=== PATIENT | female | born 1955 | race Hispanic/Latino ===

== ENCOUNTER 2020-10-04 08:53 | Emergency (ER) | payer OTHER, SELFPAY ==
--- OUTSIDE RECORDS SUMMARY | 2020-10-04 09:11 | XMS REPORT ---
:1955 Author Organization [facility] Address [address] 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 lifestyle modifications Problem Prediabetes R73.03 Active 903694075 Problem HTN I10 Active 45183327 (hypertension) Problem Acute sinusitis, J01.90 Active 61579345 unspecified Problem Encounter for Z00.01 Active 699696626 general adult medical examination with abnormal findings Problem Mixed E78.2 Active 404843619 hyperlipidemia Problem Temporary low D69.6 Active 902869352 platelet count Problem Benign H81.12 Active 706038173 paroxysmal positional vertigo of left ear ALLERGIES No Known Allergies ENCOUNTERS from 1955 to 2020-09-30 Encounter Location Date Provider Diagnosis [facility] [address] [place] Sep, Na Anupam HTN (hypertension) I10 ; Family Medicine [address] [facility] [place] [address] unspecified J0 1.90 ; Benign paroxysm al positional vert igo of left ear H81.12 ; Mixed hyperlipidemia E78.2 ; Prediabetes R73 .03 ; Allergic rhinit is J30.9 and Other speci fied bacterial agent s as the cause of diseas es classified else where B96.89 IMMUNIZATIONS No Information SOCIAL HISTORY Tobacco Use: Social History Observation Description Date Details (start date - stop date) Never Smoker Sex Assigned At : Social History Observation Description Sex Assigned At Unknown PHQ9 Question Answer Notes Little interest or pleasure in doing things More than half t he days Feeling down, depressed, or hopeless Nearly every day Trouble falling or staying asleep or sleeping too much Nearl y every day Feeling tired or having little energy Nearly every day Poor appetite or overeating Nearly every day Feeling bad about yourself, or that you are a failure, More than half the days or have let yourself or your family down Trouble concentrating on things, such as reading the Nearly every day newspaper or watching television Moving or speaking so slowly that other people could Nearly every day have noticed; or the opposite, being so fidgety or restless that you have been moving around a lot more than usual Total Score 22 Interpretation Severe Depression Thoughts that you would be better off or of Not at all hurting yourself in some way Tobacco Use/Smoking Question Answer Notes Are you a never smoker REASON FOR REFERRAL No Information VITAL SIGNS No information MEDICATIONS Medication SIG (Take, Route, Notes Start Date End Date Status Frequency, Duration) Losartan Potassium 100 Take 1 tablet by Active MG mouth once daily for 30 Losartan 1 tablet Orally Once Acti ve Potassium-HCTZ a day for 90 day(s) 100-12.5 MG Flonase 50 MCG/ACT 2 spray in each A ctive nostril Nasally Once a day for 90 days Rosuvastatin Calcium 5 1 tablet Orally Once Active MG a day at bedtime for 90 days Montelukast Sodium 10 1 tablet Orally Once Active MG a day for 90 days Amoxicillin 500 MG 1 capsule Orally Sep,Sep, 020 Active every 8 hrs for 7 days Vitamin D 1 capsule Orally for Not- Taking (Ergocalciferol) 68939 30 day(s) UNIT PredniSONE 10 MG 2 tablets with food Sep, Sep, Active or milk Orally Once a day for 7 days Amlodipine Besylate 5 1 tablet Orally Once Active MG a day at bedtime for 90 days PROCEDURES No Information RESULTS No Results REASON FOR VISIT Discuss medication/s , lab results, elevated BP, left ear dizziness, sinus pressure, hld, depressionanxiety, prediabetes MEDICAL (GENERAL) HISTORY Type Description Date Medical History Allergic rhinitis Medical History HTN (hypertension) Surgical History foot surgery 2003 Surgical History tubes tied 1994 Goals Section No Information Health Concerns No Information MEDICAL EQUIPMENT No Information MENTAL STATUS No Information FUNCTIONAL STATUS No Information ASSESSMENTS Encounter Date Diagnosis Assessment Treatment Notes Treatment Notes Clinical Notes Sep, HTN (hypertension) elevated -- Maintian a low unco ntrolled (ICD-10 - I10) salt DASH diet, will add exercise, weight loss amlodo pine 5mg and decrease stress at bedti me recommended. Keep BP log and will review next visit. If blood pressure consistently above 140/90 return to clinic for adjustment of meds. Try to quit smoking if you currently smoke. Decrease caffeine intake if possible. - - advised to avoid phenylephrine and pseudoephedrine in otc sinus/cold meds containing these decongestants which work by vasoconstricting blood vessels to help decrease congestion however may cause your BP to rise. -- If you have a cold may take Coricidin brand of cold medicines safe for high blood pressure patients. Sep, Acute sinusitis, unspecified (ICD-10 - J01.90) Sep, Benign paroxysmal - aviod frequent positional vertigo movements/ changes in of left ear (ICD-10 position of head. - H81.12) recommend to try at home vertigo exercise. recommend to avoid caffeine and stay hydrated. - may try compression stockings. take meds as directed. move slowly. -- will treat - discussed bppv exercises to reshift crystals of ear and how to do exercises at home. - if symptoms of dizziness worsen or you develop nausea, vomiting or headache go to ER. Sep, Mixed low fat diet, hyperlipidemia decrease fast food (ICD-10 - E78.2) and fried foods. Increase fruit and vegetable intake. exercise as tolerated 30minutes per day at least 3 days a week. May take fish oil 1000mg twice daily to help increase good cholesterol (HDL). Sep, Prediabetes (ICD-10 A1C6.0 6.2 - R73.03) low carb 1800 ADA diet. Avoid sodas, juices and remember portion control. Low fat diet exercise and weightloss. will monitor A1C every 6 months. Sep, Allergic rhinitis (ICD-10 - J30.9) Sep, Other specified bacterial agents as the cause of diseases classified elsewhere (ICD-10 - B96.89) Sep, Other -- Medications Total time sp ent reviewed and updated. by pro vider -- Dietary and during this Lifestyle virtual visit modifications was 21minutes. discussed with Also, time wa s patient regarding low spent counseling fat low salt diet and coordi nating diet, exercise and care incl uding weight management. -- but no t limited Treatment options, to discus vandana of risks and benefits, test res ults, side effects reviewed diagno stic or in detail. Patient treatment accepts risk. -- recommendat ions, Advised on prognosis, risk s signs/symptoms to and benefi ts of monitor and when to manageme nt call clinic and/or options, visit the nearest ER. instru ctions, Patient verbalized education , understanding and compliance and agreed with plan. or risk time was spent reduction. counseling and coordinating care including but not limited to discussion of test results, diagnostic or treatment recommendations, prognosis, risks and benefits of management options, instructions, education, compliance and or risk reduction. - PLAN OF TREATMENT Medication Medication Name Sig Start Date Stop Date PredniSONE 10 MG 2 tablets with food or milk Sep, Sep, Orally Once a day for 7 days Amoxicillin 500 MG 1 capsule Orally every 8 Sep, 15 D ec, 2019 hrs for 7 days Amlodipine Besylate 5 MG 1 tablet Orally Once a day at bedtime for 90 days Rosuvastatin Calcium 5 MG 1 tablet Orally Once a day at bedtime for 90 days Losartan Potassium-HCTZ 100-12.5 1 tablet Orally Once a day MG for 90 day(s) Montelukast Sodium 10 MG 1 tablet Orally Once a day for 90 days Treatment Notes Assessment Notes Clinical Notes HTN (hypertension) -- Maintian a low salt DASH uncontrolled will add diet, exercise, weight loss amlodopine 5 mg at bedtime and decrease stress recommended. Keep BP log and will review next visit. If blood pressure consistently above 140/90 return to clinic for adjustment of meds. Try to quit smoking if you currently smoke. Decrease caffeine intake if possible. - - advised to avoid phenylephrine and pseudoephedrine in otc sinus/cold meds containing these decongestants which work by vasoconstricting blood vessels to help decrease congestion however may cause your BP to rise. -- If you have a cold may take Coricidin brand of cold medicines safe for high blood pressure patients. Benign paroxysmal positional - aviod frequent movements/ vertigo of left ear changes in position of head. recommend to try at home vertigo exercise. recommend to avoid caffeine and stay hydrated. - may try compression stockings. take meds as directed. move slowly.-- will treat- discussed bppv exercises to reshift crystals of ear and how to do exercises at home.- if symptoms of dizziness worsen or you develop nausea, vomiting or headache go to ER. Mixed hyperlipidemia low fat diet, decrease fast food and fried foods. Increase fruit and vegetable intake. exercise as tolerated 30minutes per day at least 3 days a week. May take fish oil 1000mg twice daily to help increase good cholesterol (HDL). Prediabetes A1C6.0 6.2low carb 1800 ADA diet. Avoid sodas, juices and remember portion control. Low fat diet exercise and weightloss. will monitor A1C every 6 months. Next Appt Details 2 Weeks Reason:bp check/ dizziness Provider Name:Maria M Bo, 2020-10-12 08:2 0:00 AM, [address], [address], [place], [address], Provider Name:Maria M Bo, 2021-01-23 08:0 0:00 AM, [address], [address], [place], [address], Provider Name:Maria M Bo, 2021-01-30 10:0 0:00 AM, [address], [address], [place], [address], Follow Up:2 Weeksbp check/ dizziness Insurance Providers Payer Name Payer Payer Insured Patient Coverage Coverage End Address Phone Name Relationship to Start Date Gee e Insured Ambetter from [phone] Myah Palomino self [address] [place] [id number] [facility] [id number]
--- OUTSIDE RECORDS SUMMARY | 2020-10-04 09:11 | XMS REPORT ---
:1955 Author Organization [facility] Address [address] 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 817906400 improved with depression lifestyle modifications ALLERGIES No Known Allergies ENCOUNTERS from 1955 to 2020-08-19 Encounter Location Date Provider Diagnosis [facility] [address] [facility] [address], [place] [address] IMMUNIZATIONS No Information SOCIAL HISTORY Tobacco Use: [...] No information MEDICATIONS Medication SIG (Take, Route, Start Date End Date Status Frequency, Duration) Flonase 50 MCG/ACT 2 spray in each nostril Active Nasally Once a day for 90 days Losartan Potassium-HCTZ 1 tablet Orally Once a Active 100-12.5 MG day for 90 day(s) Losartan Potassium 100 MG Take 1 tablet by mouth Active once daily for 30 Amlodipine Besylate 5 MG 1 tablet Orally Once a Jun, Active day at bedtime for 90 days Rosuvastatin Calcium 5 MG 1 tablet Orally Once a Jun, Active day at bedtime for 90 days Vitamin D (Ergocalciferol) 1 capsule Orally for 30 Not-Taking 14692 UNIT day(s) Montelukast Sodium 10 MG 1 tablet Orally Once a Active day for 90 days PROCEDURES No Information RESULTS No Results REASON FOR VISIT Lab result MEDICAL (GENERAL) HISTORY Type Description Date Medical History Allergic rhinitis Medical History HTN (hypertension) Surgical History foot surgery 2003 Surgical History tubes tied 1995 Goals Section No Information Health Concerns No Information MEDICAL EQUIPMENT No Information MENTAL STATUS No Information FUNCTIONAL STATUS No Information ASSESSMENTS No Information PLAN OF TREATMENT Medication Medication Name Sig Start Date Stop Date Amlodipine Besylate 5 MG 1 tablet Orally Once a day Jun, at bedtime for 90 days Rosuvastatin Calcium 5 MG 1 tablet Orally Once a day Jun, 0 at bedtime for 90 days Montelukast Sodium 10 MG 1 tablet Orally Once a day for 90 days Losartan Potassium-HCTZ 100-12.5 1 tablet Orally Once a day MG for 90 day(s) Next Appt Details Provider Name:Maria M Bo, 2021-01-23 08:0 0:00 AM, [address], [address], [place], [address], Provider Name:Maria M Bo 2021-01-30 10:0 0:00 AM, [address], [address], [place], [address], Insurance Providers Payer Name Payer Payer Insured Patient Coverage Coverage End Address Phone Name Relationship to Start Date Gee e Insured Ambetter from [phone] Myah Palomino self [address] [place] [id number] [address] [facility] [phone]
--- OUTSIDE RECORDS SUMMARY | 2020-10-04 09:12 | XMS REPORT | Continuity of Care Document ---
:1955 Author Organization [facility] t Address [address] [place] [address] Care Team Providers Name Role Phone LINDA MEEK Attending Clinician Unavailable JONNY PERLA Attending Clinician Unavailable LINDA MEEK Admitting Clinician Unavailable JONNY PERLA Admitting Clinician Unavailable Problems This patient has no known problems. Allergies, Adverse Reactions, Alerts This patient has no known allergies or adverse reactions. Medications Ordered Filled Start Stop Current Ordering Indication Dosage Frequency Signature Comments Components Source Medication Medication Date Date Medication? Clinician (SIG) Name Name Amlodipine Amlodipine Yes Na Meek [address] [facility] Besylate [facility] 07[facility]01 [facility] Rosuvastati Rosuvastati Yes Na Meek [address] [facility] n Calcium n Calcium 07-01 [facility] Flonase Flonase Yes Na Meek [address] [facility] 4-04 each [facility] Montelukast Montelukast Yes Na Meek [address] [facility] Sodium Sodium [facility] Losartan Losartan Yes Na Meek [address] [facility] Potassium-H Potassium-H [facility] - [facility] ent Clinics Vitamin D Vitamin D Yes Na Meek [address] [facility] (Ergocalcif (Ergocalcif [facility] - [facility]) [facility] Losartan Losartan Yes Na Meek Take [address] Potassium Potassium tablet by [facility] - mouth once [facility] daily l Outpati ent Clinics Procedures This patient has no known procedures. Encounters Start End Encounter Admission Attending Care Care Encounter Source Date/Time Date/Time Type Type Clinicians Facility Department ID 2020-09-27 2020-09-27 [facility] [id number] 2020-08-17 2020-08-[address] [facility] [id number] [facility] 2020-07-01 2020-07-01 [facility] [id number] [facility] 09:40[facility]00 09:40:00 [facility] l Medicine Outpati ent Clinics 2020-06-07 2020-06-07 [facility] [id number] [facility] 01:12:00 01:12:00 [facility] l Medicine Outpati ent Clinics 2020-01-12 2020-01-12 [facility] [id number] [facility] 08:00:00 08:00:00 [facility] l Medicine Outpati ent Clinics 2019-11-03 2019-11-03 [facility] [id number] [facility] 11:08:00 11:08:00 [facility] l Medicine Outpati ent Clinics 2019-09-22 2019-09-22 [facility] [id number] [facility] 16:47:00 16:47:00 [facility] l Medicine Outpati ent Clinics 2019-09-16 2019-09-16 [facility] [id number] 08:20:00 08:20:00 [facility] Medicine l Medicine Outpati ent Clinics 2019-05-29 2019-05-29 [facility] [id number] [address] 10:40:00 10:40:00 [facility] Medicine l Medicine Outpati ent Clinics 2019-04-30 2019-04-30 Outpatient LINDA SHAR[facility] RAD [id number] [facility] 13:28:00 23:59:00 [facility] 2019-04-24 2019-04-24 Outpatient Manny Fraga [id number] [facility] 09:40[facility]00 09:40:00 [place] [employer] [facility] 2019-01-22 2019-01-22 Out[place] [id number] [address] 09:00:00 09:00:[address] [place] [address] [facility] Results Test Description Test Time Test Comments Results Result Sourc e Comments MAMMOGRAM 2019-04-20 Exam: Bilateral digital SCREENING CAD 1 mammogramLocation: INC G0202 15:21:32 [id number]: Routine screening.Comparison: 06/05/17 and 02/09/16FINDINGS:No dominant masses or clustered microcalcifications are identified. Smallwell-defined nodule in the upper outer left breast likely represents lymph nodeand is unchanged in the interval. The breast parenchyma demonstrates scatteredfibroglandular elements without change. R2 computer aided detection was utilized as an aid for interpreting theseimages.IMPRESSION:1. ACR BI-RADS 2. Benign findings. Recommendation: Routine yearly mammographic follow-up recommended. MAMMOGRAM ANNUAL 2017-05-21 Exam: Bilateral digital SCREENING-LEILA 6 mammogramLocation: W/CAD G0202 11:57:04 [id number]: Routine screening.Comparison: 02/09/16FINDINGS:No dominant masses or clustered microcalcifications are identified. The breastparenchyma demonstrates scattered fibroglandular elements without change. R2 computer aided detection was utilized as an aid for interpreting theseimages.IMPRESSION:1. ACR BI-RADS 2. Benign findings. Recommendation: Routine yearly mammographic follow-up recommended. [employer] AccreditationFDA CertifiedBoard Certified Radiologists(ARRT) Registered Mammography TechnologistsNOTE: 1. A negative report should not delay biopsy if a dominant or clinicallysuspicious mass is present. 4 to 8% of cancers are not identified by x-ray.2. A negative report may reinforce clinical impression.3. Adenosis and dense breasts may obscure an underlying neoplasm.4. False positive results average 6 to 10%.5. Complete assessment of BI-RADS wording:A. Category 0 = Needs Additional Imaging Evaluation.B. Category 1 = Negative mammogram.C. Category 2 = Benign Finding.D. Category 3 = Probably Benign Finding - Short Interval Followup Suggested.E. Category 4 = Suspicious Abnormality.F. Category 5 = Highly Suggestive Of Malignancy.G. Category 6 = Known Malignancy.
--- NOTE | 2020-10-04 10:02 | RAD REPORT ---
EXAM DESCRIPTION: RAD - Chest Single View - 10/04/2020 9:38 am CLINICAL HISTORY: dizziness, shortness of breath COMPARISON: None TECHNIQUE: AP portable chest image was obtained 10/04/2020 9:38 am . FINDINGS: Lungs are clear. Heart and vasculature are normal. No measurable pleural effusion and no p neumothorax. No acute bony abnormality seen. No acute aortic findings suspected. IMPRESSION: No acute cardiopulmonary process.
--- NOTE | 2020-10-04 10:06 | RAD REPORT ---
EXAM DESCRIPTION: CT - Head Brain Wo Cont - 10/04/2020 9:43 am CLINICAL HISTORY: DIZZINESS COMPARISON: No comparisons TECHNIQUE: Axial 5 mm thick images of the head were obtained without IV contrast. All CT scans are performed using dose optimization technique as appropriate and may include automated exposure control or mA/KV adjustment according to patient size. FINDINGS: No intracranial hemorrhage, mass, edema or shift of mid-line structures. No acute infarcti on changes seen. No abnormal extra-axial fluid collections. Ventricles are normal. Mastoid air cells and visualized portions of the paranasal sinuses are clear. No acute bony findings. IMPRESSION: Negative non-contrast CT head examination.
[2020-10-04] MEDS ORDERED: ONDANSETRON 4 MG/2 ML VIAL ONE (10:38)
[2020-10-04] MEDS ORDERED: MECLIZINE HCL 12.5 MG TAB ONE (10:38)
[2020-10-04 11:13] LABS: Absolute Lymphocytes (CBC) 2.6 K/uL (0.7-4.9); Basophils % 0.6 % (0-1.3); Hematocrit 43.7 % (36.0-45.0); MPV 7.8 fL (7.6-11.3); RBC Red Blood Cell Count 5.01 M/uL (3.86-4.86)
[2020-10-04 11:16] LABS: Protime INR 1.12
[2020-10-04 11:36] LABS: ALT/SGPT 68 U/L (12-78); AST/SGOT 29 U/L (15-37); Albumin 4.1 g/dL (3.4-5.0); Alkaline Phosphatase 99 U/L (45-117); BUN Blood Urea Nitrogen 14 mg/dL (7-18); Bicarbonate 29 mmol/L (21-32); Bilirubin Direct < 0.1 mg/dL (0-0.2); Bilirubin Total 0.4 mg/dL (0.2-1.0); Glucose Level 112 mg/dL (74-106); Magnesium 2.4 mg/dL (1.8-2.4); NT PRO-BNP 34 pg/mL (<125); Potassium 3.4 mmol/L (3.5-5.1); Protein, Total 8.3 g/dL (6.4-8.2); Sodium Level 137 mmol/L (136-145); Troponin (Emerg Dept Use Only) < 0.02 ng/mL (0.0-0.045)
--- NOTE | 2020-10-04 11:44 | RAD REPORT ---
EXAM DESCRIPTION: CT - Head angio - 10/04/2020 11:17 am CLINICAL HISTORY: DIZZINESS TECHNIQUE: During dynamic enhancement using nonionic IV contrast, axial 1 millimeter thick images of the head were obtained. Sagittal and axial reconstruction images were generated using MIP technique and reviewed. All CT scans are performed using dose optimization technique as appropriate and may include automated exposure control or mA/KV adjustment according to patient size. COMPARISON: CT head same date FINDINGS: No aneurysm or vascular malformation identified. Major venous sinuses are patent. No stenosis, named branch occlusion, vasculitis or other significant vascular finding identifiable. IMPRESSION: Negative CT angio head examination.
--- NOTE | 2020-10-04 11:48 | RAD REPORT ---
EXAM DESCRIPTION: CT - Neck Angio - 10/04/2020 11:20 am CLINICAL HISTORY: dizziness TECHNIQUE: During dynamic enhancement using nonionic IV contrast, axial 2 mm thick images of the nec k were obtained. Sagittal and axial reconstruction images were generated using MIP technique and revi ewed. All CT scans are performed using dose optimization technique as appropriate and may include automated exposure control or mA/KV adjustment according to patient size. COMPARISON: CT head same date, CT angio head same date FINDINGS: No aneurysm or vascular malformation identified. No carotid or vertebral dissection. No aortic arch or great vessel origin abnormality seen. Vertebral artery origins unremarkable as well . No stenosis, vasculitis or other significant carotid artery finding. No focal abnormality of either vertebral artery. Basilar artery is normal. IMPRESSION: Negative CT angio neck examination.
[2020-10-04] MEDS ORDERED: DIAZEPAM 10 MG/2 ML INJ SYRINGE ONE (12:31)
--- NOTE | 2020-10-04 14:15 | EDPHYS ---
Physician Documentation [facility] Name: Swathi Palomino Age: 65 yrs Sex: Female : 1955 Arrival Date: 10/04/2020 Time: 09:00 Bed 14 Private MD: ED Physician Bora Bejarano HPI: 10/04 09:35 This 65 yrs old Female presents to ER via Ambulatory with complaints of jmm Dizziness. 09:35 The patient presents with dizziness, sense of spinning. Onset: The symptoms/episode jmm began/occurred acutely, 3 week(s) ago. Modifying factors: The symptoms are alleviated by sitting up, the symptoms are aggravated by lying down. Associated signs and symptoms: Pertinent positives: left arm numbess, Pertinent negatives: chest pain. This is a 65 year old female with a history of htn that presents ot the ED with complaints of dizziness described as the room spinning which began approx 1 month to 3 weeks ago. Denies recent URI. States having an episode of left arm numbness which lasted for 10 minutes yesterday. Denies chest pain. Denies vomiting but states having nausea. Historical: - Allergies: 09:18 No Known Allergies; sv - PMHx: 09:18 Hypertension; sv - Immunization history:: Flu vaccine is up to date. - Social history:: Smoking status: Patient denies any tobacco usage or history of. ROS: 09:35 Constitutional: Negative for fever, chills, and weight loss, Cardiovascular: Negative jmm for chest pain, palpitations, and edema, Respiratory: Negative for shortness of breath, cough, wheezing, and pleuritic chest pain. 09:35 Neuro: Positive for dizziness, numbness. 09:35 All other systems are negative. Exam: 09:35 Constitutional: This is a well developed, well nourished patient who is awake, alert, jmm and in no acute distress. Head/Face: atraumatic. 09:35 ENT: Moist Mucus Membranes Neck: Trachea midline, Supple Chest/axilla: Normal chest wall appearance and motion. 09:35 Respiratory: Normal respirations, no respiratory distress appreciated Abdomen/GI: Non distended, soft Back: Normal ROM Skin: General appearance color normal MS/ Extremity: Moves all extremities, no obvious deformities appreciated, no edema noted to the lower extremities 09:35 Eyes: Nystagmus: nystagmus with fast component noted, bilaterally. 09:35 Cardiovascular: Rate: normal, Rhythm: regular. 09:35 Neuro: Orientation: is normal, Mentation: is normal, Memory: is normal, Cerebellar function: normal finger to nose testing, heel to nguyen testing is normal. 09:35 Psych: Behavior/mood is pleasant, cooperative. 12:21 ECG was reviewed by the Attending Physician. [facility] Vital Signs: 09:15 BP 193 / 90; Pulse 68; Resp 14; Temp 98.2; Pulse Ox 100% ; Weight 74.39 kg; Height 5 sv ft. 0 in. (152.40 cm); Pain 0/10; 09:45 BP 194 / 75; Pulse 61; Resp 16; Pulse Ox 99% on R/A; vg1 10:00 BP 177 / 87; Pulse 63; Resp 14; Pulse Ox 99% on R/A; vg1 10:45 BP 139 / 66; Pulse 55; Resp 14; Pulse Ox 99% on R/A; vg1 11:30 BP 123 / 65; Pulse 61; Resp 14; Pulse Ox 100% on R/A; vg1 12:18 BP 151 / 76; Pulse 61; Resp 16; Pulse Ox 99% on R/A; vg1 12:30 BP 122 / 50; Pulse 63; Resp 14; Pulse Ox 95% on R/A; vg1 13:15 BP 137 / 74; Pulse 65; Resp 14; Pulse Ox 100% on R/A; vg1 14:00 BP 175 / 75; Pulse 62; Resp 14; Pulse Ox 100% on R/A; vg1 14:45 BP 147 / 69; Pulse 63; Resp 16; Pulse Ox 98% on R/A; vg1 09:15 Body Mass Index 32.03 (74.39 kg, 152.40 cm) sv MDM: 09:11 Patient medically screened. sage 14:12 Data reviewed: vital signs, nurses notes. Counseling: I had a detailed discussion with gonzalo the patient and/or guardian regarding: the historical points, exam findings, and any diagnostic results supporting the discharge/admit diagnosis, lab results, radiology results, the need for outpatient follow up, to return to the emergency department if symptoms worsen or persist or if there are any questions or concerns that arise at home. ED course: Dizziness resolved in the ED. CT and CTA negative for an acute process. Advised to follow up with neuro and ent for further evaluation. Patient is otherwise given strict return precautions. Patient understood and agrees with the plan of care. . 10/04 09:27 Order name: Basic Metabolic Panel; Complete Time: 11:40 [facility] 10/04 09:27 Order name: CBC with Diff; Complete Time: 11:28 [facility] 10/04 09:27 Order name: LFT's; Complete Time: 11:40 [facility] 10/04 09:27 Order name: Magnesium; Complete Time: 11:40 [facility] 10/04 09:27 Order name: NT PRO-BNP; Complete Time: 11:40 [facility] 10/04 09:27 Order name: PT-INR; Complete Time: 11:28 [facility] 10/04 09:27 Order name: Troponin (emerg Dept Use Only); Complete Time: 11:40 [facility] 10/04 09:27 Order name: XRAY Chest (1 view); Complete Time: 10:07 [facility] 10/04 09:29 Order name: CT Head Brain wo Cont; Complete Time: 10:07 [facility] 10/04 10:35 Order name: Head Angio CT; Complete Time: 11:49 [facility] 10/04 10:35 Order name: Neck Angio CT; Complete Time: 11:49 [facility] 10/04 14:40 Order name: CREATININE WHOLE BLOOD; Complete Time: 14:49 [facility] 10/04 09:27 Order name: EKG; Complete Time: 09:28 [facility] 10/04 09:27 Order name: Cardiac monitoring; Complete Time: 09:40 [facility] 10/04 09:27 Order name: EKG - Nurse/Tech; Complete Time: 09:40 [facility] 10/04 09:27 Order name: IV Saline Lock; Complete Time: 10:41 [facility] 10/04 09:27 Order name: Labs collected and sent; Complete Time: 09:59 [facility] 10/04 09:27 Order name: O2 Per Protocol; Complete Time: 09:40 [facility] 10/04 09:27 Order name: O2 Sat Monitoring; Complete Time: 09:40 jm EC:21 Rate is 60 beats/min. Rhythm is regular. QRS [place] is Normal. FL interval is normal. QRS jmm interval is normal. QT interval is normal. No Q waves. T waves are Normal. No ST changes noted. Reviewed by me. Administered Medications: 09:45 CANCELLED (cancel): cloNIDine 0.1 mg PO once [facility] 10:30 Drug: Meclizine 50 mg Route: PO; vg1 12:28 Follow up: Response: No adverse reaction vg1 10:30 Drug: Zofran (Ondansetron) 4 mg Route: IVP; Site: right antecubital; vg1 12:28 Follow up: Response: Nausea is decreased vg1 12:20 Drug: Valium 2 mg Route: IVP; Site: right antecubital; vg1 12:40 Follow up: Response: No adverse reaction vg1 Disposition: 10/05 11:51 Co-signature as Attending Physician, Bora Bejarano MD I agree with the assessment and sage plan of care. Disposition: 10/04/20 14:14 Discharged to Home. Impression: Vertigo. - Condition is Stable. - Discharge Instructions: Benign Positional Vertigo, Vertigo, Marylu Maneuver Self-Care. - Prescriptions for Meclizine 25 mg Oral Tablet - take 1 tablet by ORAL route every 8 hours As needed; 30 tablet. - Medication Reconciliation Form, Thank You Letter, Antibiotic Education, Prescription Opioid Use form. - Follow up: Private Physician; When: 2 - 3 days; Reason: Recheck today's complaints, Continuance of care, Re-evaluation by your physician. Follow up: Paolo Hanks MD; When: 2 - 3 days; Reason: Recheck today's complaints, Continuance of care, Re-evaluation by your physician. Follow up: Makenzie Jones MD; When: 2 - 3 days; Reason: Recheck today's complaints, Continuance of care, Re-evaluation by your physician. Signatures: Dispatcher [employer] EDMakenzie Borges, Bora Gaytan RN, MD MD cha Mickail, Joel, PA PA jmm Garcia, Victoria, RN RN vg1 Corrections: (The following items were deleted from the chart) 10/04 09:45 09:28 cloNIDine 0.1 mg PO once ordered. gonzalo sánchez 14:17 14:14 10/04/2020 14:14 Discharged to Home. Impression: Vertigo. Condition is Stable. [facility] Forms are Medication Reconciliation Form, Thank You Letter, Antibiotic Education, Prescription Opioid Use. Follow up: Private Physician; When: 2 - 3 days; Reason: Recheck today's complaints, Continuance of care, Re-evaluation by your physician. gonzalo 15:24 14:17 10/04/2020 14:14 Discharged to Home. Impression: Vertigo. Condition is Stable. vg1 Discharge Instructions: Benign Positional Vertigo, Vertigo, Marylu Maneuver Self-Care. Prescriptions for Meclizine 25 mg Oral Tablet - take 1 tablet by ORAL route every 8 hours As needed; 30 tablet. and Forms are Medication Reconciliation Form, Thank You Letter, Antibiotic Education, Prescription Opioid Use. Follow up: Private Physician; When: 2 - 3 days; Reason: Recheck today's complaints, Continuance of care, Re-evaluation by your physician. Follow up: Paolo Hanks; When: 2 - 3 days; Reason: Recheck today's complaints, Continuance of care, Re-evaluation by your physician. Follow up: Makenzie Jones; When: 2 - 3 days; Reason: Recheck today's complaints, Continuance of care, Re-evaluation by your physician. gonzalo
--- NOTE | 2020-10-04 14:15 | ER ---
Nurse's Notes [facility] Name: Swathi Palomino Age: 65 yrs Sex: Female : 1955 Arrival Date: 10/04/2020 Time: 09:00 Bed 14 Private MD: Diagnosis: Vertigo Presentation: 10/04 09:15 Chief complaint: Patient states: dizziness x 3 weeks, she stopped taking her Norvasc 4 sv days ago and her Rosuvastatin 8 days ago on her own because she thought those were making her dizzy. Coronavirus screen: Client denies travel out of the [place] in the last 14 days. At this time, the client does not indicate any symptoms associated with coronavirus-19. Ebola Screen: No symptoms or risks identified at this time. Initial Sepsis Screen: Does the patient meet any 2 criteria? No. Patient's initial sepsis screen is negative. Does the patient have a suspected source of infection? No. Patient's initial sepsis screen is negative. Risk Assessment: Do you want to hurt yourself or someone else? Patient reports no desire to harm self or others. Note health director #[id number] used. Onset of symptoms was August 2020. 09:15 Method Of Arrival: Ambulatory sv 09:15 Acuity: SONYA 2 sv Triage Assessment: 09:19 General: Appears in no apparent distress. comfortable, Behavior is calm, cooperative, sv appropriate for age. Pain: Denies pain. Neuro: Level of Consciousness is awake, alert, obeys commands, Oriented to person, place, time, situation, Moves all extremities. Full function Gait is steady, Speech is normal, Reports dizziness. Respiratory: Respiratory effort is even, unlabored, Respiratory pattern is regular, symmetrical. Historical: - Allergies: 09:18 No Known Allergies; sv - PMHx: 09:18 Hypertension; sv - Immunization history:: Flu vaccine is up to date. - Social history:: Smoking status: Patient denies any tobacco usage or history of. Screenin:15 Abuse screen: Denies threats or abuse. Denies injuries from another. Nutritional sv screening: No deficits noted. Tuberculosis screening: No symptoms or risk factors identified. Fall Risk None identified. Assessment: 09:30 General: Appears in no apparent distress. Behavior is calm, cooperative. Pain: Denies vg1 pain. Neuro: Level of Consciousness is awake, alert, obeys commands, Oriented to person, place, time, situation. Cardiovascular: Patient's skin is warm and dry. Respiratory: Airway is patent Respiratory effort is even, unlabored, Respiratory pattern is regular, symmetrical. GI: Abdomen is flat. : No signs and/or symptoms were reported regarding the genitourinary system. EENT: No signs and/or symptoms were reported regarding the EENT system. Derm: Skin is pink, warm \T\ dry. Musculoskeletal: Range of motion: intact in all extremities. 10:30 Reassessment: Patient appears in no apparent distress at this time. No changes from vg1 previously documented assessment. Patient and/or family updated on plan of care and expected duration. Pain level reassessed. Patient is alert, oriented x 3, equal unlabored respirations, skin warm/dry/pink. 11:40 Reassessment: Patient appears in no apparent distress at this time. Patient and/or vg1 family updated on plan of care and expected duration. Pain level reassessed. Patient is alert, oriented x 3, equal unlabored respirations, skin warm/dry/pink. 12:40 Reassessment: Patient appears in no apparent distress at this time. Patient and/or vg1 family updated on plan of care and expected duration. Pain level reassessed. Patient went to restroom. Came back to room and blood pressure increased from 123/65 to 151/76. Patient stated doesn't feel dizzy just feels tired. Patient received Valium at 1223. Reassessed BP at 1240 measured at 122/50. 13:33 Reassessment: Patient appears in no apparent distress at this time. Patient and/or vg1 family updated on plan of care and expected duration. Pain level reassessed. Patient is alert, oriented x 3, equal unlabored respirations, skin warm/dry/pink. Patient stated is feeling better than she did this moring. Vital Signs: 09:15 BP 193 / 90; Pulse 68; Resp 14; Temp 98.2; Pulse Ox 100% ; Weight 74.39 kg; Height 5 sv ft. 0 in. (152.40 cm); Pain 0/10; 09:45 BP 194 / 75; Pulse 61; Resp 16; Pulse Ox 99% on R/A; vg1 10:00 BP 177 / 87; Pulse 63; Resp 14; Pulse Ox 99% on R/A; vg1 10:45 BP 139 / 66; Pulse 55; Resp 14; Pulse Ox 99% on R/A; vg1 11:30 BP 123 / 65; Pulse 61; Resp 14; Pulse Ox 100% on R/A; vg1 12:18 BP 151 / 76; Pulse 61; Resp 16; Pulse Ox 99% on R/A; vg1 12:30 BP 122 / 50; Pulse 63; Resp 14; Pulse Ox 95% on R/A; vg1 13:15 BP 137 / 74; Pulse 65; Resp 14; Pulse Ox 100% on R/A; vg1 14:00 BP 175 / 75; Pulse 62; Resp 14; Pulse Ox 100% on R/A; vg1 14:45 BP 147 / 69; Pulse 63; Resp 16; Pulse Ox 98% on R/A; vg1 09:15 Body Mass Index 32.03 (74.39 kg, 152.40 cm) sv ED Course: 09:00 Patient arrived in ED. rg4 09:04 Sandra Hamm, RN is Primary Nurse. ph 09:05 Yung Martino, GAIL is PHCP. jmm 09:05 Bora Bejarano MD is Attending Physician. jmm 09:15 Arm band placed on. sv 09:15 Patient has correct armband on for positive identification. Bed in low position. Call sv light in reach. Adult w/ patient. Pulse ox on. NIBP on. 09:17 Triage completed. sv 09:22 Melissa Manriquez, RN is Primary Nurse. vg1 09:38 XRAY Chest (1 view) In Process Unspecified. EDMS 09:[address] via wheelchair. vg1 09:43 CT Head Brain wo Cont In Process Unspecified. EDMS 09:44 Patient has correct armband on for positive identification. Placed in gown. Bed in low mh5 position. Call light in reach. Side rails up X 1. Warm blanket given. [employer] on. Pulse ox on. NIBP on. 09:59 Basic Metabolic Panel Sent. mh5 09:59 CBC with Diff Sent. mh5 09:59 LFT's Sent. mh5 09:59 Magnesium Sent. mh5 09:59 NT PRO-BNP Sent. mh5 09:59 PT-INR Sent. mh5 09:59 Troponin (emerg Dept Use Only) Sent. [facility] 10:00 Initial lab(s) drawn, by ak, sent to lab. Inserted saline lock: 22 gauge in right 5 antecubital area, using aseptic technique. Blood collected. 11:[address] In Process Unspecified. EDMS 11:[address] In Process Unspecified. EDMS 12:15 EKG done, by ED staff, reviewed by Yung REYNOLDS. jp3 14:16 Paolo Hanks MD is Referral Physician. [facility] 14:17 Makenzie Jones MD is Referral Physician. [facility] 15:20 No provider procedures requiring assistance completed. IV discontinued, intact, vg1 bleeding controlled, No redness/swelling at site. Pressure dressing applied. Administered Medications: 09:45 CANCELLED (cancel): cloNIDine 0.1 mg PO once [facility] 10:30 Drug: Meclizine 50 mg Route: PO; vg1 12:28 Follow up: Response: No adverse reaction vg1 10:30 Drug: Zofran (Ondansetron) 4 mg Route: IVP; Site: right antecubital; vg1 12:28 Follow up: Response: Nausea is decreased vg1 12:20 Drug: Valium 2 mg Route: IVP; Site: right antecubital; vg1 12:40 Follow up: Response: No adverse reaction vg1 Outcome: 14:14 Discharge ordered by . [facility] 15:20 Discharged to home ambulatory. vg1 15:20 Condition: stable 15:20 Discharge instructions given to patient, family, Instructed on discharge instructions, follow up and referral plans. medication usage, Demonstrated understanding of instructions, follow-up care, medications, Prescriptions given X 1. 15:24 Patient left the ED. vg1 Signatures: Dispatcher [employer] EDMS Makenzie Velasquez, RN Yung Mantilla PA PA [facility] Sandra Hamm RN RN ph Garcia, Rubi Mago Long [facility] Clarence Perez 3 Melissa Manriquez, RN RN vg1 Corrections: (The following items were deleted from the chart) 12:53 12:50 Reassessment: Patient appears in no apparent distress at this time. Patient vg1 and/or family updated on plan of care and expected duration. Pain level reassessed. Patient went to restroom. Came back to room and blood pressure increased from 123/65 to 151/76. Patient stated doesn't feel dizzy just feels tired. Patient received Valium at 1223. Reassessed BP at 1240 measured at 122/50. vg1
--- NOTE | 2020-10-04 19:33 | EKG ---
Test Date: 2020-10-04 Test Time: 09:37:18 Copyholder: QUENTIN MEASUREMENT RESULTS: Intervals: Rate: 58 CO: 150 QRSD: 98 QT: 416 QTc: 408 [place]: P: 62 CO: 150 QRS: 31 T: 80 INTERPRETIVE STATEMENTS: Sinus bradycardia ST abnormality, possible digitalis effect Abnormal ECG No previous ECG available for comparison Electronically Signed On 10-04-20 19:32:19 PHARMACY STUDENT by Lalo Charles
--- NOTE | 2020-10-05 19:17 | EKG ---
Test Date: 2020-10-04 Test Time: 12:17:13 [employer] Machine: TOMASA MEASUREMENT RESULTS: Intervals: Rate: 60 WA: 152 QRSD: 94 QT: 424 QTc: 424 [place]: P: 60 WA: 152 QRS: 23 T: 67 INTERPRETIVE STATEMENTS: Normal sinus rhythm Normal ECG Compared to ECG 10/04/2020 09:37:18 Sinus bradycardia no longer present ST (T wave) deviation no longer present Electronically Signed On 10-05-20 19:13:01 AGRONOMY INSTRUCTOR by Lalo Charles
[2020-10-06 17:32] VITALS: TEMP 98.2
[2020-10-06 17:40] VITALS: BP 122/50; O2SAT 95
== END 2020-10-04 15:24 | disposition home or self-care (01) ==
LOC: ER 08:53
DX: R42 Dizziness and giddiness (principal); I10 Essential (primary) hypertension
CPT/HCPCS: 93005 ×2; 85025; 80048; 36415; 83735; 85610; 82565; 80076; 84484; 83880; 70450; 70496; 70498; 71045; Q9967; J3360; J2405; 96374; 96375; 99285

== ENCOUNTER 2024-07-04 16:14 | Emergency (ER) | payer OTHER ==
[2024-07-04] MEDS ORDERED: NA CHLORIDE 0.9% 2,000 ML ONE (16:55)
[2024-07-04 17:08] LABS: Absolute Basophils 0.1 K/uL (0-0.5); Absolute Eosinophils 0.3 K/uL (0-0.5); Absolute Lymphocytes (CBC) 2.2 K/uL (0.7-4.9); Absolute Monocytes 0.5 K/uL (0.1-1.3); Basophils % 0.6 % (0-1.3); Hematocrit 36.6 % (36.0-45.0); Hemoglobin 12.3 g/dL (12.0-15.0); Lymphocytes % 21.9 % (15.3-44.8); MCH 29.6 pg (27.0-35.0); MCHC 33.6 g/dL (32.0-36.0); MCV 88.4 fL (80-100); MPV 7.7 fL (7.6-11.3); Monocytes % 5.2 % (3.3-12.3); Neutrophils % 69.3 % (41.7-73.7); Platelets 297 thou/uL (152-406); RBC Red Blood Cell Count 4.14 M/uL (3.86-4.86); Red Cell Distribution Width 14.3 % (12.1-15.2)
[2024-07-04 17:09] LABS: PT Prothrombin Time 12.9 SECONDS (9.4-12.5); Protime INR 1.16
[2024-07-04 17:20] LABS: ALT/SGPT 42 U/L (13-56); AST/SGOT 26 U/L (15-37); Albumin 3.5 g/dL (3.4-5.0); Albumin/Globulin Ratio 0.9 (1.1-1.8); Alkaline Phosphatase 74 U/L (45-117); Anion Gap 13.5 mEq/L (5.0-15.0); BUN Blood Urea Nitrogen 13 mg/dL (7-18); Bicarbonate 21 mEq/L (21-32); Bilirubin Total 0.2 mg/dL (0.2-1.0); Creatine Phosphokinase 185 U/L (26-192); Globulin 3.7 g/dL (2.3-3.5); Glomerular Filtration Rate 76 ml/min (=/>90); Glucose Level 128 mg/dL (74-106); Magnesium 1.9 mg/dL (1.6-2.4); NT PRO-BNP 7 pg/mL (<125); Potassium 3.5 mEq/L (3.5-5.1); Protein, Total 7.2 g/dL (6.4-8.2); Sodium Level 139 mEq/L (136-145)
[2024-07-04 17:24] LABS: Bilirubin Direct < 0.2 mg/dL (0-0.2)
[2024-07-04 17:27] LABS: Troponin High Sensitivity 70.9 pg/mL (<58.9)
[2024-07-04 18:17] LABS: Specific Gravity 1.015 (1.005-1.030); Sqamous Epithelial None Seen /HPF (None Seen); Urine Bacteria None Seen /HPF (<20); Urine Bilirubin NEGATIVE (Negative); Urine Blood Negative (Negative); Urine Clarity Clear (Clear); Urine Color Light-Yellow (Yellow); Urine Culture Reflex Order NOT NEEDED; Urine Glucose NEGATIVE (Negative); Urine Ketones TRACE (Negative); Urine Microscopic Reflex YN ORDER UMIC; Urine Mucus Slight /HPF (None Seen); Urine Nitrite NEGATIVE (Negative); Urine Protein TRACE (Negative); Urine RBC <5 /HPF (None Seen); Urine Urobilinogen Normal (Normal); Urine WBC <5 /HPF (<5)
--- NOTE | 2024-07-04 19:07 | RAD REPORT ---
EXAM DESCRIPTION: CT - Head C Spine Mpr Wo Con - 07/04/2024 6:54 pm CLINICAL HISTORY: Breast cancer. Right numbness COMPARISON: Head CT 2019 TECHNIQUE: Computed axial tomography of the head and cervical spine was obtained. Sagittal and coronal reconstruction was performed. All CT scans are performed using dose optimization technique as appropriate and may include automated exposure control or mA/KV adjustment according to patient size. FINDINGS: 3.5 centimeter low-density area left parietal lobe. Moderate surrounding vasogenic edema. Shift of midline structures 2 millimeters towards the right. No intracranial bleed An extra-axial fluid collection is not noted. No hydrocephalus Fluid within the visualized sinuses and mastoids is not seen A cervical fracture is not visualized. No dislocation is noted. 8 millimeters lucency within the vertebral body C6 IMPRESSION: 3.5 centimeter low-density area left parietal lobe suspicious for a metastasis. Moderate surrounding vasogenic edema and shift of midline structures 2 millimeters towards right A cervical fracture is not visualized. 8 millimeter lucency within vertebral body C6 could be benign or metastasis.
[2024-07-04] MEDS ORDERED: NA CHLORIDE 0.9% 100 ML ONE (19:16)
[2024-07-04] MEDS ORDERED: LEVETIRACETAM 500 MG/5 ML VIAL IV ONE (19:16)
[2024-07-04] MEDS ORDERED: dexAMETHasone 10 MG/ML VIAL ONE (19:16)
--- NOTE | 2024-07-04 19:21 | ER ---
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 mb9 Pt HR at 115 and hypertensive on arrival. Given 600 mls of NS and 2.5 mg of Versed for leg spasms via 20 g right hand. Pt hot to touch on arrival, ice packs applied, and oral temperature 98.9.". Coronavirus screen: Vaccine status: Patient reports being unvaccinated. Ebola Screen: No symptoms or risks identified at this time. Initial Sepsis Screen: Does the patient meet any 2 criteria? No. Patient's initial sepsis screen is negative. Does the patient have a suspected source of infection? No. Patient's initial sepsis screen is negative. Risk Assessment: Do you want to hurt yourself or someone else? Patient reports no desire to harm self or others. Onset of symptoms was July 04, 2024. 16:31 Method Of Arrival: EMS[facility] mb9 16:31 Acuity: SONYA 3 mb9 Triage Assessment: 16:36 General: Appears in no apparent distress. Behavior is cooperative. Pain: Denies pain. mb9 EENT: No signs and/or symptoms were reported regarding the EENT system. Neuro: Quinn Agitation-Sedation Scale (RASS): 0 - Alert and Calm Level of Consciousness is awake, alert, obeys commands, Oriented to person, place, time, situation, Appropriate for age. Cardiovascular: Heart tones S1 S2 present Patient's skin is warm and dry. Respiratory: Airway is patent Respiratory effort is even, unlabored, Respiratory pattern is regular, symmetrical, Breath sounds are clear bilaterally. GI: Abdomen is round non-distended, Bowel sounds present X 4 quads. : No signs and/or symptoms were reported regarding the genitourinary system. Derm: Skin is pink, warm \\T\\ dry. Port present. Musculoskeletal: Range of motion: intact in all extremities. Historical: - Allergies: 16:31 No Known Allergies; mb9 - Home Meds: 16:31 None [Active]; mb9 - PMHx: 16:31 Hypertension; mb9 17:12 stage 4 liver \\T\\ breast cancer; mb9 - PSHx: 16:31 None; mb9 - Immunization history:: Adult Immunizations up to date. - Infectious Disease History:: Denies. - Social history:: Smoking status: Patient denies any tobacco usage or history of. - Family history:: not pertinent. Screenin:37 [facility] ED Fall Risk Assessment (Adult) History of falling in the last 3 months, mb9 including since admission No falls in past 3 months (0 pts) Confusion or Disorientation No (0 pts) Intoxicated or Sedated No (0 pts) Impaired Gait No (0 pts) Mobility Assist Device Used No (0 pt) Altered Elimination No (0 pt) Score/Fall Risk Level 0 - 2 = Low Risk Oriented to surroundings, Maintained a safe environment, Educated pt \\T\\ family on fall prevention, incl call for assistance when getting out of bed. Abuse screen: Denies threats or abuse. Nutritional screening: No deficits noted. Tuberculosis screening: No symptoms or risk factors identified. Assessment: 16:37 Reassessment: see triage assessment. mb9 17:10 Reassessment: Pts daughter at bedside and states, "She is in Remission for stage 4 mb9 Breast and Liver cancer but gets IV chemotherapy every 3 weeks. She called 911 because she started having these attacks a few days ago where she has spasms and numbness in her right foot up her leg. She doesn't have any right now and is feeling better.". 18:00 Reassessment: Pt weak on right side of body when ambulating. Pt states she is having mb9 spasms and numbness again in right leg. ERP notified. 18:57 Reassessment: Patient and/or family updated on plan of care and expected duration. Pain mb9 level reassessed. Patient is alert, oriented x 3, equal unlabored respirations, skin warm/dry/pink. Patient states symptoms have not improved. 19:15 Reassessment: No changes from previously documented assessment. Patient and/or family rg5 updated on plan of care and expected duration. Pain level reassessed. Patient is alert, oriented x 3, equal unlabored respirations, skin warm/dry/pink. Respiratory: Airway is patent Respiratory effort is even, unlabored, Respiratory pattern is regular, symmetrical. 20:00 Reassessment: Patient and/or family updated on plan of care and expected duration. Pain rg5 level reassessed. Patient is alert, oriented x 3, equal unlabored respirations, skin warm/dry/pink. 21:00 Reassessment: No changes from previously documented assessment. Patient and/or family rg5 updated on plan of care and expected duration. Pain level reassessed. Patient is alert, oriented x 3, equal unlabored respirations, skin warm/dry/pink. 22:00 Reassessment: Patient and/or family updated on plan of care and expected duration. Pain rg5 level reassessed. Patient is alert, oriented x 3, equal unlabored respirations, skin warm/dry/pink. Vital Signs: 16:31 BP 142 / 70; Pulse 87; Resp 18; Temp 98.4(O); Pulse Ox 93% on R/A; Weight 81.65 kg; mb9 Height 5 ft. 5 in. ; 16:36 Pulse Ox 100% on 2 lpm NC; mb9 17:12 BP 138 / 72; Pulse 77; Resp 18; Pulse Ox 100% on R/A; mb9 18:12 BP 164 / 74; Pulse 77; Resp 18; Pulse Ox 100% on R/A; mb9 19:15 BP 173 / 87; Pulse 77; Resp 18; Temp 98.1(O); Pulse Ox 96% on R/A; Pain 0/10; rg5 20:00 BP 145 / 76; Pulse 73; Resp 17; Pulse Ox 97% ; Pain 0/10; rg5 21:00 BP 138 / 74; Pulse 79; Resp 18; Pulse Ox 96% on R/A; Pain 0/10; rg5 22:00 BP 117 / 50; Pulse 75; Resp 17; Temp 98; Pulse Ox 100% on R/A; Pain 0/10; rg5 16:31 Body Mass Index 29.95 (81.65 kg, 165.1 cm) [facility] 19:15 Pain Scale: Adult rg5 20:00 Pain Scale: Adult rg5 21:00 Pain Scale: Adult rg5 22:00 Pain Scale: Adult rg5 [place] Coma Score: 19:16 Eye Response: spontaneous(4). Motor Response: obeys commands(6). Verbal Response: sage oriented(5). Total: 15. ED Course: 16:30 Patient arrived in ED. mb9 16:31 Arm band placed on. mb9 16:36 Triage completed. mb9 16:37 Placed in gown. Bed in low position. Call light in reach. Side rails up X 1. Provided mb9 Education on: press call light if needing anything. Client placed on continuous cardiac and pulse oximetry monitoring. NIBP monitoring applied. transcription typist on. 16:37 No provider procedures requiring assistance completed. mb9 16:37 Initial lab(s) drawn, by me, sent to lab. Maintain EMS IV. Dressing intact. Good blood mb9 return noted. Site clean \\T\\ dry. Gauge \\T\\ site: 20g right hand. Flushed with 10 mL NS. 16:48 Seble Mak RN is Primary Nurse. mb9 16:49 Bora Bejarano MD is Attending Physician. sage 16:52 CPK Sent. mb9 16:52 CBC with Diff Sent. mb9 16:52 LFT's Sent. mb9 16:52 Magnesium Sent. mb9 16:52 NT PRO-BNP Sent. mb9 16:52 PT-INR Sent. mb9 16:52 Troponin HS Sent. mb9 18:12 Assisted to bathroom. Repositioned patient. Cleaned of incontinence. Linen changed. pt mb9 placed on purwic. 18:55 Head C Spine Mpr Wo Con In Process Unspecified. EDMS 18:55 Chest Abd Pelvis Wo Con In Process Unspecified. EDMS 19:08 Flor Serra initiated transfer with Danuta \\Arpan\\ [facility]. kmf 19:10 Report given to DIANE Vyas. mb9 19:39 Resting quietly. transfer approval from receiving facility. rg5 19:49 pt was accepted to [facility] room [address]. Dr. Edward Pathak accepted at 1956. Admin approval given [facility] by Danuta Haider \\T\\ 1933. Number for nurse to nurse report [phone]. 20:38 called ems eta 1 hour and 45 min wait. called [place]a 30-45 mins. kmf [place] [facility] to transfer pt. 22:27 Patient transferred, IV remains in place. intact, bleeding controlled, No rg5 redness/swelling at site. Administered Medications: 19:08 Discontinued: ns 0.9% 1000 ml IV at 1 bolus Per protocol; 1000 mL bolus sage 17:08 Drug: NS 0.9% IV 1000 ml IV at 1 bolus Per protocol; 1000 mL bolus Route: IV; Rate: 1 mb9 bolus; Site: right hand; 18:57 Follow up: Response: No adverse reaction; IV Status: Completed infusion mb9 17:08 Drug: NS 0.9% IV 1000 ml IV at 1 bolus Per protocol; 1000 mL bolus Route: IV; Rate: 1 mb9 bolus; Site: right hand; 18:57 Follow up: Response: No adverse reaction; IV Status: Completed infusion mb9 19:15 Drug: Decadron - Dexamethasone IVP 10 mg IVP once Route: IVP; Site: left hand; rg5 22:23 Follow up: Response: No adverse reaction rg5 19:20 Drug: Keppra IV 1000 mg IV at per protocol once Route: IV; Rate: per protocol; Site: rg5 left hand; 22:23 Follow up: IV Status: Completed infusion; IV Intake: 100ml rg5 Medication: 16:38 VIS not applicable for this client. mb9 Intake: 22:23 IV: 100ml; Total: 100ml. rg5 Outcome: 19:21 ER care complete, transfer ordered by . [facility] 22:27 Transferred by ground EMS to [facility], rg5 22:27 Condition: stable 22:27 Discharge instructions given to EMS, 22:27 Patient left the ED. rg5 Signatures: Dispatcher [employer] EDMS Bora Bejarano MD MD cha Wilkerson, Seble Benitez RN RN jay9 Lena Tomas [facility] Asael Boyd, DIANE RN rg5 Corrections: (The following items were deleted from the chart) 17:13 16:36 Derm: Skin is pink, warm \\T\\ dry. mb9 mb9 23:18 22:59 pt was accepted to [facility] room 2055. Dr. Edward, Pathak accepted at 1956. Admin approval [facility] given by Danuta Haider \\T\\ 1933. Number for nurse to nurse report [phone] kmf
--- NOTE | 2024-07-04 19:22 | EDPHYS ---
Physician Documentation [facility] Name: Swathi Palomino Age: 69 yrs Sex: Female : 1955 Arrival Date: 07/04/2024 Time: 16:14 Bed 13 Private MD: ENRIQUETA Physician Bora Bejarano HPI: 07/04 19:09 This 69 yrs old Female presents to ER via EMS with complaints of Heat sage Exhaustion. 19:09 The patient complains of pain to the top of head and forehead. The patient describes sage the headache as constant. The patient's problem is reported as weakness, in the right upper extremity, in the right lower extremity. Onset: The symptoms/episode began/occurred 2 day(s) ago. Duration: The episode is continuous. The symptoms are alleviated by nothing. The symptoms are aggravated by standing, walking. Associated signs and symptoms: Pertinent positives: dizziness, nausea, weakness. Historical: - Allergies: 16:31 No Known Allergies; mb9 - Home Meds: 16:31 None [Active]; mb9 - PMHx: 16:31 Hypertension; mb9 17:12 stage 4 liver \T\ breast cancer; mb9 - PSHx: 16:31 None; mb9 - Immunization history:: Adult Immunizations up to date. - Infectious Disease History:: Denies. - Social history:: Smoking status: Patient denies any tobacco usage or history of. - Family history:: not pertinent. ROS: 19:09 Constitutional: Negative for fever, chills, and weight loss, Eyes: Negative for injury, sage pain, redness, and discharge, ENT: Negative for injury, pain, and discharge, Neck: Negative for injury, pain, and swelling, Cardiovascular: Negative for chest pain, palpitations, and edema, Respiratory: Negative for shortness of breath, cough, wheezing, and pleuritic chest pain, Abdomen/GI: Negative for abdominal pain, nausea, vomiting, diarrhea, and constipation, Back: Negative for injury and pain, : Negative for injury, bleeding, discharge, and swelling, MS/Extremity: Negative for injury and deformity, Skin: Negative for injury, rash, and discoloration, Psych: Negative for depression, anxiety, suicide ideation, homicidal ideation, and hallucinations, Allergy/Immunology: Negative for hives, rash, and allergies, Endocrine: Negative for neck swelling, polydipsia, polyuria, polyphagia, and marked weight changes, Hematologic/Lymphatic: Negative for swollen nodes, abnormal bleeding, and unusual bruising, 19:09 Neuro: Positive for dizziness, gait disturbance, headache, weakness, of the right arm and right leg, Exam: 19:09 Radiologist reports: 3.5 cm mass left parietal lobe, 2 mm left to right shift sage 19:09 Constitutional: This is a well developed, well nourished patient who is awake, alert, and in no acute distress. Head/Face: Normocephalic, atraumatic. Eyes: Pupils equal round and reactive to light, extra-ocular motions intact. Lids and lashes normal. Conjunctiva and sclera are non-icteric and not injected. Cornea within normal limits. Periorbital areas with no swelling, redness, or edema. ENT: Nares patent. No nasal discharge, no septal abnormalities noted. Tympanic membranes are normal and external auditory canals are clear. Oropharynx with no redness, swelling, or masses, exudates, or evidence of obstruction, uvula midline. Mucous membranes moist. Neck: Trachea midline, no thyromegaly or masses palpated, and no cervical lymphadenopathy. Supple, full range of motion without nuchal rigidity, or vertebral point tenderness. No Meningismus. Chest/axilla: Normal chest wall appearance and motion. Nontender with no deformity. No lesions are appreciated. Cardiovascular: Regular rate and rhythm with a normal S1 and S2. No gallops, murmurs, or rubs. Normal PMI, no JVD. No pulse deficits. Respiratory: Lungs have equal breath sounds bilaterally, clear to auscultation and percussion. No rales, rhonchi or wheezes noted. No increased work of breathing, no retractions or nasal flaring. Abdomen/GI: Soft, non-tender, with normal bowel sounds. No distension or tympany. No guarding or rebound. No evidence of tenderness throughout. Back: No spinal tenderness. No costovertebral tenderness. Full range of motion. Female : Normal external genitalia. Skin: Warm, dry with normal turgor. Normal color with no rashes, no lesions, and no evidence of cellulitis. MS/ Extremity: Pulses equal, no cyanosis. Neurovascular intact. Full, normal range of motion. Psych: Awake, alert, with orientation to person, place and time. Behavior, mood, and affect are within normal limits. 19:09 ECG was reviewed by the Attending Physician. Vital Signs: 16:31 BP 142 / 70; Pulse 87; Resp 18; Temp 98.4(O); Pulse Ox 93% on R/A; Weight 81.65 kg; mb9 Height 5 ft. 5 in. ; 16:36 Pulse Ox 100% on 2 lpm NC; mb9 17:12 BP 138 / 72; Pulse 77; Resp 18; Pulse Ox 100% on R/A; mb9 18:12 BP 164 / 74; Pulse 77; Resp 18; Pulse Ox 100% on R/A; mb9 19:15 BP 173 / 87; Pulse 77; Resp 18; Temp 98.1(O); Pulse Ox 96% on R/A; Pain 0/10; rg5 20:00 BP 145 / 76; Pulse 73; Resp 17; Pulse Ox 97% ; Pain 0/10; rg5 21:00 BP 138 / 74; Pulse 79; Resp 18; Pulse Ox 96% on R/A; Pain 0/10; rg5 22:00 BP 117 / 50; Pulse 75; Resp 17; Temp 98; Pulse Ox 100% on R/A; Pain 0/10; rg5 16:31 Body Mass Index 29.95 (81.65 kg, 165.1 cm) [facility] 19:15 Pain Scale: Adult rg5 20:00 Pain Scale: Adult rg5 21:00 Pain Scale: Adult rg5 22:00 Pain Scale: Adult rg5 [place] Coma Score: 19:16 Eye Response: spontaneous(4). Motor Response: obeys commands(6). Verbal Response: sage oriented(5). Total: 15. MDM: 16:49 Patient medically screened. sage 19:16 Differential diagnosis: cluster headache, cerebral vascular accident, epidural sage hematoma, CVA, TIA, Dementia, paralysis, Parkinson disease, metabolic disorder, drug effects, hypoglycemia, hyponatremia, intracerebral hemorrhage, migraine, neoplasm, sinusitis, subdural hematoma, temporal arteritis, tension headache, traumatic injuries, trigeminal neuralgia, vasomotor headache. Differential Diagnosis altered mental status, sepsis, flu. Data reviewed: vital signs, nurses notes, EMS record, lab test result(s), EKG, radiologic studies, CT scan, plain films. Consideration of Admission/Observation Escalation of care including admission/observation considered. I considered the following discharge prescriptions or medication management in the emergency department Medications were administered in the Emergency Department. See MAR. Discussion of test interpretation with radiology: I had a discussion with radiology regarding a test interpretation. dr yan. Test considered but Not performed: MRI: no mri brain. Historians other than the Patient: Daughter/Son: daughter well informed. Care significantly affected by the following chronic conditions: Hypertension, Cancer, stage 4 metastatic cancer. Counseling: I had a detailed discussion with the patient and/or guardian regarding the historical points, exam findings, and any diagnostic results supporting the discharge/admit diagnosis, lab results, radiology results, the need to transfer to another facility, for higher level of care, [facility] does not immediately have the required specialist. 19:21 TNKase (Tenecteplase) Screening: Not Applicable. [facility] 07/04 16:49 Order name: Basic Metabolic Panel; Complete Time: 18: [facility] 07/04 16:49 Order name: CBC with Diff; Complete Time: 18: [facility] 07/04 16:49 Order name: LFT's; Complete Time: 18: [facility] 07/04 16:49 Order name: Magnesium; Complete Time: 18: [facility] 07/04 16:49 Order name: NT PRO-BNP; Complete Time: 18: [facility] 07/04 16:49 Order name: PT-INR; Complete Time: 18: [facility] 07/04 16:49 Order name: Troponin HS; Complete Time: 18: [facility] 07/04 16:50 Order name: CPK; Complete Time: 18: [facility] 07/04 16:50 Order name: Urinalysis w/ reflexes; Complete Time: 19: [facility] 07/04 18:44 Order name: Head C Spine Mpr Wo Con; Complete Time: 19: [facility] 07/04 18:46 Order name: Chest Abd Pelvis Wo Con; Complete Time: 19: [facility] 07/04 16:49 Order name: EKG; Complete Time: 16:49 [facility] 07/04 16:49 Order name: Cardiac monitoring; Complete Time: 16:52 [facility] 07/04 16:49 Order name: EKG - Nurse/Tech; Complete Time: 16:52 [facility] 07/04 16:49 Order name: IV Saline Lock; Complete Time: 16:52 mb9 07/04 16:49 Order name: Labs collected and sent; Complete Time: 16:52 mb9 07/04 16:49 Order name: O2 Per Protocol; Complete Time: 16:52 9 07/04 16:49 Order name: O2 Sat Monitoring; Complete Time: 16:52 9 07/04 19:09 Order name: Seizure Precautions; Complete Time: 19:11 sage EC:09 Rate is 80 beats/min. Rhythm is regular. QRS [place] is Normal. VA interval is normal. QRS sage interval is normal. QT interval is normal. No Q waves. T waves are Normal. No ST changes noted. Clinical impression: NSR w/ Non-specific ST/T Changes and No evidence of ischemia. Interpreted by me. Reviewed by me. Administered Medications: 19:08 Discontinued: ns 0.9% 1000 ml IV at 1 bolus Per protocol; 1000 mL bolus sage 17:08 Drug: NS 0.9% IV 1000 ml IV at 1 bolus Per protocol; 1000 mL bolus Route: IV; Rate: 1 mb9 bolus; Site: right hand; 18:57 Follow up: Response: No adverse reaction; IV Status: Completed infusion mb9 17:08 Drug: NS 0.9% IV 1000 ml IV at 1 bolus Per protocol; 1000 mL bolus Route: IV; Rate: 1 mb9 bolus; Site: right hand; 18:57 Follow up: Response: No adverse reaction; IV Status: Completed infusion mb9 19:15 Drug: Decadron - Dexamethasone IVP 10 mg IVP once Route: IVP; Site: left hand; rg5 22:23 Follow up: Response: No adverse reaction rg5 19:20 Drug: Keppra IV 1000 mg IV at per protocol once Route: IV; Rate: per protocol; Site: rg5 left hand; 22:23 Follow up: IV Status: Completed infusion; IV Intake: 100ml rg5 Disposition Summary: 07/04/24 19:21 Transfer Ordered Notes: Transfer Location: [facility] sage Reason: Higher level of care sage Condition: Serious sage Problem: new sage Symptoms: have improved sage Accepting Physician: to [facility] , neuro(07/04/24 22:27) rg5 Diagnosis - Weakness sage - Secondary malignant neoplasm of brain - breast to brain, with vasogenic edema, 2 mm sage right to left shift - Abnormal levels of other serum enzymes - elevated troponin sage - Abnormal findings on diagnostic imaging of other specified body structures - 8 mm sage lucency C6, UNCLEAR ETIOLOGY, 11MCM MASS OFF THE UTERUS Forms: - Medication Reconciliation Form sage - SBAR form sage Signatures: Dispatcher [employer] EDMS Bora Bejarano MD MD cha Wilkerson, Seble Benitez RN RN mb9 Asael Boyd, RN RN rg5 Corrections: (The following items were deleted from the chart) 18:44 18:02 Head C Spine CAP W Con+CT.RAD.BRZ ordered. EDNC EDMS 19:28 19:21 to [facility] , neuro sage sage 19:56 19:28 to [facility] , neuro sage [facility] 22:27 19:56 to [facility] , neuro sage rg5
--- NOTE | 2024-07-04 19:25 | RAD REPORT ---
EXAM DESCRIPTION: CT - Chest Abd Pelvis Wo Con - 07/04/2024 6:54 pm CLINICAL HISTORY: Chest and abdominal pain COMPARISON: None TECHNIQUE: Computed axial tomography of the chest, abdomen and pelvis was obtained. Oral contrast wa s given. IV contrast was not requested. All CT scans are performed using dose optimization technique as appropriate and may include automated exposure control or mA/KV adjustment according to patient size. FINDINGS: The evaluation of mediastinum, susan, vessels and solid organs is limited secondary to the lack of IV contrast administration The lungs are clear No mediastinal or hilar lymphadenopathy is seen. A pleural effusion is not present. A pericardial effusion is not seen. The liver, spleen, pancreas, adrenals and kidneys appear grossly normal There is no evidence of diverticulitis. 11 centimeter mass extends off left aspect of the uterus. It small calcifications as well as a cystic component. IMPRESSION: 11 centimeter mass extends off of left aspect of the uterus. It may represent a leiomyom a or leiomyosarcoma. A metastasis is another consideration
[2024-07-04 22:41] VITALS: BP 117/50; TEMP 98; O2SAT 100
--- NOTE | 2024-07-06 12:52 | EKG ---
Test Date: 2024-07-04 Test Time: 16:45:46 Data Collection Specialist: PJ MEASUREMENT RESULTS: Intervals: Rate: 80 DE: 172 QRSD: 98 QT: 372 QTc: 429 [place]: P: 55 DE: 172 QRS: 8 T: 101 INTERPRETIVE STATEMENTS: Normal sinus rhythm Abnormal QRS-T angle, consider primary T wave abnormality Abnormal ECG Compared to ECG 10/04/2020 12:17:13 T-wave abnormality now present Electronically Signed On 07-06-24 12:48:03 CDT by Eliezer Porter
== END 2024-07-04 22:27 | disposition short-term general hospital (02) ==
LOC: ER 16:14
DX: C79.31 Secondary malignant neoplasm of brain (principal); C50.919 Malignant neoplasm of unspecified site of unspecified female breast; R60.9 Edema, unspecified; R93.89 Abnormal findings on diagnostic imaging of other specified body structures; R79.89 Other specified abnormal findings of blood chemistry; R53.1 Weakness; N85.9 Noninflammatory disorder of uterus, unspecified
CPT/HCPCS: 96365; 96361; 93005; 85025; 81001; 80048; 36415; 83735; 82550; 85610; 80076; 84484; 83880; 70450; 71250; 72125; 74176; 96375; 99285; 96366; J1953; J1100; J7030